=== PATIENT | male | born 1975 | race Caucasian/White ===

== ENCOUNTER 2016-05-18 11:52 | Emergency (ER) | payer OTHER ==
[2016-05-18] MEDS ORDERED: Ibuprofen 800 MG Tab PO ONE (11:58)
[2016-05-18] MEDS ORDERED: Diphtheria,Pertussis(Acell),Tetanus Vaccine 0.5 ML Syringe IM ONE (11:58)
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
--- NOTE | 2016-05-18 13:18 | CR ---
EXAMINATION: Left femur HISTORY: Trauma COMPARISON: None TECHNIQUE: 2 views FINDINGS: There is subcutaneous gas noted along the lateral aspect of the distal thigh overlying the femur. There is no fracture or acute osseous abnormality noted. No suprapatellar joint effusion. Daron ne mineralization is normal. IMPRESSION: 1. Subcutaneous air projecting over the lateral aspect of the distal thigh without a visualized acut e osseous abnormality.
[2016-05-18 14:57] VITALS: BP 123/83
== END 2016-05-18 14:25 | disposition home or self-care (01) ==
LOC: MW.ED 11:52
DX: S70.12XA Contusion of left thigh, initial encounter (principal); Z23 Encounter for immunization; I10 Essential (primary) hypertension; Z79.899 Other long term (current) drug therapy
CPT/HCPCS: 36415; 73552; 81001; 82550; 90471; 90715; 99283; A9270

== ENCOUNTER 2016-05-20 14:05 | Observation (INO) | payer OTHER ==
[2016-05-20] MEDS ORDERED: Acetaminophen/HYDROcodone 325-5 MG Tab PO PRN (14:14)
[2016-05-20] MEDS ORDERED: Ibuprofen 600 MG Tab PO PRN (14:14)
[2016-05-20] MEDS ORDERED: Ondansetron 4 MG Tab.DIS PO PRN (14:14)
[2016-05-20] MEDS ORDERED: Piperacillin/Tazobactam 3.375 GM in Sodium Chloride 0.9% 50 ML IV SCH (14:30)
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
[2016-05-20] MEDS: Ketorolac 30 MG/ML SDV IVPUSH SCH ×2 (17:26→21:10)
[2016-05-20] MEDS: Lactated Ringers 1,000 ML IV SCH (17:26)
[2016-05-20] MEDS: Piperacillin/Tazobactam 3.375 GM in Sodium Chloride 0.9% 50 ML IV SCH ×2 (17:45→23:19)
[2016-05-20 18:19] LABS: CHLORIDE,CL 104 mmol/L (98-110); SODIUM,NA 141 mmol/L (136-146)
[2016-05-20] MEDS ORDERED: Potassium Chloride 20 MEQ Tab.ER PO ONE (18:30)
[2016-05-21] MEDS: Ketorolac 30 MG/ML SDV IVPUSH SCH ×4 (02:10→21:34)
[2016-05-21] MEDS: Piperacillin/Tazobactam 3.375 GM in Sodium Chloride 0.9% 50 ML IV SCH ×4 (04:39→23:43)
[2016-05-21 05:12] LABS: CHLORIDE,CL 107 mmol/L (98-110); SODIUM,NA 141 mmol/L (136-146)
[2016-05-21] MEDS: Lactated Ringers 1,000 ML IV SCH ×2 (05:13→18:14)
[2016-05-21] MEDS ORDERED: Acetaminophen 500 MG Tab PO PRN (08:19)
--- NOTE | 2016-05-21 08:20 | PCM.SN ---
- Free Text/Narrative Note: pt resting comfortably in bed states leg pain improving denies fevers/chills overnight no specific concerns today is receiving 30mg Toradol IV q6h scheduled, no PRN pain/antipyretics needed overnight wvv, afeb - Tmax 99.6 exam L thigh reveals anterior wound to be clean with minimal serosanguinous drainage no surrounding erythema thigh tender with palpation ROM at knee deferred due to thigh pain at/ehl/gastroc 5/5, dp 2+, sensation intact distally WBC improved to 14.46 from 16.51 on admit postassium WNL 4.1 (3.3 yesterday, received 40 mEq IV yesterday) ESR 44 CRP 24.39 blood cultures x2 pending US from yesterday showed no fluid collection at injury site - no radiographic signs of abscess L thigh wound hypokalemia - resolved will remove NPO status for today regular diet for today NPO at midnight until re-evaluation of wound AM 3/24 tylenol PRN fevers - not to exceed 4,000mg in 24 hrs continue current IV abx activity as tolerated
[2016-05-21] MEDS ORDERED: Pantoprazole 40 MG Tab.CR PO SCH (12:30)
--- NOTE | 2016-05-21 13:23 | US ---
EXAM DATE: 05/20/16 PATIENT'S AGE: 41 Patient: SATISH GARZA Facility: [place], [place] Site . Site : 1975 Study: US Extremity [id number]/22/2017 5:03:38 PM Ordering Physician: Dottie Eddy Final Report: INDICATION: pain in left thigh and knee LEFT LOWER EXTREMITY VENOUS DUPLEX ULTRASOUND TECHNIQUE: Duplex sonography using grayscale imaging as well as color and spectral Doppler interrogation was performed over the left lower extremity with attention to the deep venous system. FINDINGS: The left common femoral, femoral, deep femoral, popliteal, and posterior tibial veins show normal compressibility, color Doppler flow, and augmentation response. IMPRESSION: No evidence of deep venous thrombosis in the left lower extremity. FLOWER GURROLA MD [employer] Dictated by: Breezy Gurrola MD @ 05/20/2016 17:08:21 (Electronic Signature) Report Signed by Proxy and Original Signed Document filed in the Medical Record. MTDD
--- NOTE | 2016-05-21 13:25 | US ---
EXAM DATE: 05/20/16 PATIENT'S AGE: 41 Patient: SATISH GARZA Facility: [place], [place] Site . Site : 1975 Study: US Extremity [id number]/22/2017 8:39:42 PM Ordering Physician: Dottie Eddy Final Report: Indication: Thigh trauma, edema Technique: Ultrasound extremity Comparison: None. Findings: The left thigh was scanned in the area of the patient`s known open wound. No evidence for fluid collections that would be consistent with hematoma or abscess. Diffuse edematous changes noted. Impression: No evidence of a walled-off fluid collection consistent with hematoma or abscess. Diffuse edema. Dictated by Jorge Ledezma MD @ 05/20/2016 9:16:00 PM Dictated by: Jorge Ledezma MD @ 05/20/2016 21:16:11 (Electronic Signature) Report Signed by Proxy and Original Signed Document filed in the Medical Record. [email or web address]
--- NOTE | 2016-05-21 18:14 | PCM.SURGPN ---
- General Info Date of Service: 05/21/16 Functional Status: Reports: pain controlled - Review of Systems General: Reports: No Symptoms. Denies: Fever, Chills Systems Review Comment:: Patient improving. Has been OOB and ambulating with tolerable pain. Having more lateral knee pain. - Patient Data Vitals - most recent: Last Vital Signs Temp 98.8 F 05/21/16 15:30 Pulse 83 05/21/16 15:30 Resp 16 05/21/16 15:30 BP 133/78 05/21/16 15:30 Pulse Ox 97 05/21/16 15:30 Weight - most recent: 118.1 kg I&O - last 24 hours: Intake & Output 05/21/16 05/21/16 05/21/16 06:59 14:59 22:59 Intake Total 2000 50 650 Output Total 650 1200 Balance 1350 50 -550 Lab Results last 24 hrs: Laboratory Results - last 24 hr 05/20/16 05/20/16 05/20/16 Range/Units 17:44 17:44 17:44 WBC (4.0-11.0) K/uL RBC (4.50-5.90) M/uL Hgb (13.0-17.0) g/dL Hct (38.0-50.0) % MCV (80.0-98.0) fL MCH (27.0-32.0) pg MCHC (31.0-37.0) g/dL RDW Std Deviation (28.0-62.0) fl RDW Coeff of Shaun (11.0-15.0) % Plt Count (150-400) K/uL MPV (7.40-12.00) fL Neut % (Auto) (48.0-80.0) % Lymph % (Auto) (16.0-40.0) % Arthur % (Auto) (0.0-15.0) % Eos % (Auto) (0.0-7.0) % Baso % (Auto) (0.0-1.5) % Neut # (Auto) (1.4-5.7) K/uL Lymph # (Auto) (0.6-2.4) K/uL Arthur # (Auto) (0.0-0.8) K/uL Eos # (Auto) (0.0-0.7) K/uL Baso # (Auto) (0.0-0.1) K/uL Nucleated RBC % /100WBC Nucleated RBCs # K/uL ESR 44 H (0-14) mm/hr Sodium 141 (136-146) mmol/L Potassium 3.3 L (3.5-5.1) mmol/L Chloride 104 (98-110) mmol/L Carbon Dioxide 26 (21-31) mmol/L BUN 19 (6.0-23.0) mg/dL Creatinine 1.1 (0.6-1.5) mg/dL Est Cr Clr Drug Dosing 94.13 mL/min Estimated GFR (MDRD) > 60.0 ml/min Glucose 130 H (60-110) mg/dL Calcium 8.7 L (8.8-10.8) mg/dL C-Reactive Protein 24.39 H (0.0-0.5) mg/dL 05/21/16 05/21/16 Range/Units 04:20 04:20 WBC 14.46 H (4.0-11.0) K/uL RBC 4.71 (4.50-5.90) M/uL Hgb 13.4 (13.0-17.0) g/dL Hct 40.7 (38.0-50.0) % MCV 86.4 (80.0-98.0) fL MCH 28.5 (27.0-32.0) pg MCHC 32.9 (31.0-37.0) g/dL RDW Std Deviation 42.5 (28.0-62.0) fl RDW Coeff of Shaun 13 (11.0-15.0) % Plt Count 224 (150-400) K/uL MPV 10.10 (7.40-12.00) fL Neut % (Auto) 75.4 (48.0-80.0) % Lymph % (Auto) 12.9 L (16.0-40.0) % Arthur % (Auto) 10.8 (0.0-15.0) % Eos % (Auto) 0.7 (0.0-7.0) % Baso % (Auto) 0.2 (0.0-1.5) % Neut # (Auto) 10.9 H (1.4-5.7) K/uL Lymph # (Auto) 1.9 (0.6-2.4) K/uL Arthur # (Auto) 1.6 H (0.0-0.8) K/uL Eos # (Auto) 0.1 (0.0-0.7) K/uL Baso # (Auto) 0.0 (0.0-0.1) K/uL Nucleated RBC % 0.0 /100WBC Nucleated RBCs # 0 K/uL ESR (0-14) mm/hr Sodium 141 (136-146) mmol/L Potassium 4.1 (3.5-5.1) mmol/L Chloride 107 (98-110) mmol/L Carbon Dioxide 26 (21-31) mmol/L BUN 18 (6.0-23.0) mg/dL Creatinine 1.0 (0.6-1.5) mg/dL Est Cr Clr Drug Dosing 103.54 mL/min Estimated GFR (MDRD) > 60.0 ml/min Glucose 107 (60-110) mg/dL Calcium 8.2 L (8.8-10.8) mg/dL C-Reactive Protein (0.0-0.5) mg/dL Marcel Results last 24 hrs: Microbiology 05/20/16 17:49 Aerobic Blood Culture - Preliminary Blood - Venous - Lab Draw NO GROWTH AFTER 1 DAY Anaerobic Blood Culture - Preliminary NO GROWTH AFTER 1 DAY 05/20/16 17:44 Aerobic Blood Culture - Preliminary Blood - Venous NO GROWTH AFTER 1 DAY Anaerobic Blood Culture - Preliminary NO GROWTH AFTER 1 DAY Med Orders - Current: Current Medications Acetaminophen (Tylenol Extra Strength) 1,000 mg PO Q6H PRN PRN Reason: Fever Hydrocodone Bitart/Acetaminophen ([place] 325-5 Mg) 2 tab PO Q6H PRN PRN Reason: Pain (moderate 4-6) Last Admin: 05/21/16 10:36 Dose: 1 tab Lactated Ringer's (Ringers, Lactated) 1,000 mls @ 100 mls/hr IV ASDIRECTED [facility] Last Admin: 05/21/16 05:13 Dose: 100 mls/hr Piperacillin Sod/Tazobactam (Sod 3.375 gm/ Sodium Chloride) 50 mls @ 100 mls/ hr IV Q6H [facility] Last Admin: 05/21/16 17:15 Dose: 100 mls/hr Vancomycin HCl 1,750 mg/ (Sodium Chloride) 500 mls @ 333.333 mls/hr IV Q12H [facility] Last Admin: 05/21/16 18:00 Dose: 333.333 mls/hr Ketorolac Tromethamine (Toradol) 30 mg IVPUSH Q6H [facility] Last Admin: 05/21/16 14:27 Dose: 30 mg Ondansetron HCl (Zofran Odt) 4 mg PO Q6H PRN PRN Reason: nausea, able to take PO Esomeprazole Magnesium (Nexium) 40 Mg 1 each PO DAILY [facility] Vancomycin HCl (Pharmacy To Dose - Vancomycin) 1 dose .XX ASDIRECTED [facility] Discontinued Medications Piperacillin Sod/Tazobactam (Sod 3.375 gm/ Sodium Chloride) 50 mls @ 100 mls/ hr IV Q6H [facility] Last Admin: 05/20/16 17:25 Dose: 100 mls/hr Vancomycin HCl 1,750 mg/ (Sodium Chloride) 500 mls @ 333.333 mls/hr IV Q12H [facility] Last Admin: 05/20/16 18:37 Dose: Not Given Ibuprofen (Motrin) 600 mg PO Q6H PRN PRN Reason: Fever Pantoprazole Sodium (Protonix) 40 mg PO DAILY [facility] Last Admin: 05/21/16 12:27 Dose: 40 mg Potassium Chloride (Klor-Con M20) 40 meq PO ONETIME ONE Stop: 05/20/16 18:31 Last Admin: 05/20/16 18:36 Dose: 40 meq - Exam Wound/Incisions: other (L anterior laceration with serosanguinous drainage. No surrounding erythema or induration. TTP along lateral thigh and knee. Pain with any knee motion. No calf TTP. AT/EHL/gastroc 5/5. Sensation intact. DP 2+.) General: alert, oriented Lungs: Normal respiratory effort Cardiovascular: Regular Rate Psy/Mental Status: alert, normal affect, normal mood - Problem List & Annotations (1) Complicated open wound of thigh SNOMED Code(s): 141588157 Code(s): S71.109A - UNSPECIFIED OPEN WOUND, UNSPECIFIED THIGH, INITIAL ENCOUNTER Status: Acute Current Visit: Yes Qualifiers: Encounter type: subsequent encounter Laterality: left Qualified Code(s): S71.102D - Unspecified open wound, left thigh, subsequent encounter - Problem List Review Problem List Initiated/Reviewed/Updated: Yes - My Orders Last 24 Hours: Active Orders 24 hr Category Date Time Status Nothing per Oral After Midnight Diet [DIET] Diet 05/21/16 Dinner Active Regular Diet [DIET] Diet 05/21/16 Breakfast Active CULTURE BLOOD [BC] Stat Lab 05/20/16 17:44 Results CULTURE BLOOD [BC] Stat Lab 05/20/16 17:49 Results VANCOMYCIN TROUGH [CHEM] Routine Lab 05/22/16 05:30 Ordered Acetaminophen [Tylenol Extra Strength] Med 05/21/16 08:19 Active 1,000 mg PO Q6H PRN Patient's Own Medication [Ptom] Med 05/21/16 17:45 Active 1 each PO DAILY Piperacillin/Tazobactam [Piperacil-Tazobact] 3.375 gm Med 05/20/16 17:30 Active Sodium Chloride 0.9% [Normal Saline] 50 ml IV Q6H Vancomycin 1,750 mg Med 05/20/16 18:00 Active Sodium Chloride 0.9% [Normal Saline] 500 ml IV Q12H Medication Orders Acetaminophen (Tylenol Extra Strength) 1,000 mg PO Q6H PRN PRN Reason: Fever Hydrocodone Bitart/Acetaminophen ([place] 325-5 Mg) 2 tab PO Q6H PRN PRN Reason: Pain (moderate 4-6) Last Admin: 05/21/16 10:36 Dose: 1 tab Lactated Ringer's (Ringers, Lactated) 1,000 mls @ 100 mls/hr IV ASDIRECTED [facility] Last Admin: 05/21/16 05:13 Dose: 100 mls/hr Infusion: 05/21/16 03:26 Dose: 100 mls/hr Admin: 05/20/16 17:26 Dose: 100 mls/hr Piperacillin Sod/Tazobactam (Sod 3.375 gm/ Sodium Chloride) 50 mls @ 100 mls/ hr IV Q6H [facility] Last Admin: 05/21/16 17:15 Dose: 100 mls/hr Infusion: 05/21/16 11:08 Dose: 100 mls/hr Admin: 05/21/16 10:38 Dose: 100 mls/hr Infusion: 05/21/16 05:09 Dose: 100 mls/hr Admin: 05/21/16 04:39 Dose: 100 mls/hr Infusion: 05/20/16 23:49 Dose: 100 mls/hr Admin: 05/20/16 23:19 Dose: 100 mls/hr Infusion: 05/20/16 18:15 Dose: 100 mls/hr Admin: 05/20/16 17:45 Dose: 100 mls/hr Vancomycin HCl 1,750 mg/ (Sodium Chloride) 500 mls @ 333.333 mls/hr IV Q12H [facility] Last Admin: 05/21/16 18:00 Dose: 333.333 mls/hr Infusion: 05/21/16 07:47 Dose: 333.333 mls/hr Admin: 05/21/16 06:16 Dose: 333.333 mls/hr Infusion: 05/20/16 19:48 Dose: 333.333 mls/hr Admin: 05/20/16 18:17 Dose: 333.333 mls/hr Ketorolac Tromethamine (Toradol) 30 mg IVPUSH Q6H [facility] Last Admin: 05/21/16 14:27 Dose: 30 mg Admin: 05/21/16 08:32 Dose: 30 mg Admin: 05/21/16 02:10 Dose: 30 mg Admin: 05/20/16 21:10 Dose: Admin: 05/20/16 17:26 Dose: 30 mg Ondansetron HCl (Zofran Odt) 4 mg PO Q6H PRN PRN Reason: nausea, able to take PO Esomeprazole Magnesium (Nexium) 40 Mg 1 each PO DAILY [facility] Vancomycin HCl (Pharmacy To Dose - Vancomycin) 1 dose .XX ASDIRECTED [facility] - Plan Plan (Free Text/Narrative):: 1. OOB as tolerated 2. dressing changes prn 3. continue Vanco/Zosyn 4. MRI tomorrow to evaluate thigh 5. WBC decreased--new CBC in am 6. hypokalemia resolved
[2016-05-21] MEDS ORDERED: Sodium Chloride 0.9% 2.5 ML Syringe FLUSH PRN (18:19)
[2016-05-21] MEDS ORDERED: Sodium Chloride 0.9% 10 ML Syringe FLUSH PRN (18:19)
[2016-05-22] MEDS: Ketorolac 30 MG/ML SDV IVPUSH SCH ×3 (02:59→14:52)
[2016-05-22] MEDS: Piperacillin/Tazobactam 3.375 GM in Sodium Chloride 0.9% 50 ML IV SCH ×2 (04:36→11:02)
[2016-05-22 08:47] VITALS: BP 134/89
[2016-05-22] MEDS ORDERED: Levofloxacin 250 MG Tab PO SCH (13:15)
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
--- NOTE | 2016-05-22 13:28 | PCM.SN ---
- Free Text/Narrative Note: Patient seen and examined. Agree with MD Boom note. Patient feeling better today. Pain well controlled. No fevers. Has been OOB. Exam shows wound to be clean with serosang drainage. No erythema or induration. Still with TTP along lateral thigh--progressing to lateral knee and lateral low leg now, presumed due to gravity. Still with pain in thigh with ROM of knee. Moderate joint effusion at knee, but no TTP except along lateral aspect. No calf TTP. AT/EHL/gastroc 07/03. Sensation intact. DP 2+. ESR, CRP, WBC decreased. MRI shows no fluid collection. Evidence of injury to vastus lateralis and intermedius. Evidence of soft tissue swelling. Plan to discharge home today. Will remain on outpatient IV abx (Cubicin) and po Levaquin. Encourage knee ROM. Can wear immobilizer when up. Change dressing prn. If increased symptoms over weekend, patient advised to return to ER. Will f /u with me on Wednesday.
--- NOTE | 2016-05-22 14:05 | MR ---
EXAM DATE: 05/20/16 PATIENT'S AGE: 41 Patient: SATISH GARZA Facility: [place], [place] : 1975 Study: MRI Extremity Left [id number]/23/2017 9:34:36 PM Ordering Physician: Dottie Eddy Final Report: HISTORY: Left thigh injury. Technique: Axial, sagittal and coronal T1, proton density and T2 fat-sat images were obtained of the left thigh without contrast administration. Findings: There is a soft tissue wound along the anterolateral aspect of the distal left thigh as seen on axial T2 fat-sat image #20. There is infiltration of the subcutaneous tissues of the anterior and lateral aspect of the left thigh. This could relate to subcutaneous cellulitis, edema or hemorrhage. There is some thin fluid along the superficial fascia of the vastus lateralis muscle at the mid thigh level on axial T2 fast image #49 for example. Interstitial muscle edema-like signal abnormality involves the vastus lateralis, intermedius and a portion of the vastus medialis muscles. This could be posttraumatic or inflammatory. There is a defect involving the musculotendinous unit of the vastus lateralis as seen on axial T2 fat-sat image #18. Intramuscular defect involving the vastus intermedius muscle is noted on axial T2 fat-sat images #23 through 55 of series 901 compatible with muscle belly injury. On the coronal PD fat-sat images, note is made of a few locules of soft tissue gas within the soft tissues of the anterior lateral distal thigh. There is no left femoral fracture or osteomyelitis. . A moderate left knee joint effusion is present. In the setting of a penetrating injury, septic arthritis should be excluded. A small popliteal cyst is present. No significant left-sided hip joint effusion. Impression: 1. Soft tissue wound involving the anterior lateral aspect of the distal left thigh. 2. Subcutaneous signal abnormality involving the left thigh could relate to cellulitis, edema or hemorrhage from trauma. 3. Muscle edema-like signal involving the vastus lateralis, intermedius and less so vastus medialis muscles could be inflammatory related to myositis or relate to direct muscle trauma or strain. There is a small defect involving the musculotendinous unit of the vastus lateralis. Intramuscular parenchymal injury involving the vastus intermedius muscle with a small amount of fluid tracking amongst muscle fibers. 4. A few locules of soft tissue gas are present within the soft tissues of the anterior lateral distal thigh. 5. Moderate left knee joint effusion. If not previously performed, arthrocentesis should be considered to exclude septic arthritis. 6. No osteomyelitis or femoral fracture. Dictated by Jarvis Weller MD @ May 22 2016 8:16AM (Electronic Signature) Report Signed by Proxy and Original Signed Document filed in the Medical Record. LISA
[2016-05-22] MEDS ORDERED: DAPTOmycin 500 MG Vial IVPUSH SCH (16:00)
[2016-05-22] MEDS ORDERED: DAPTOmycin 500 MG in Sodium Chloride 0.9% 10 ML IV SCH (16:00)
== END 2016-05-22 15:45 | disposition home or self-care (01) ==
LOC: MW.MS 14:05
PROVIDERS: ADMIT Orthopaedic Surgery; ATTEND Orthopaedic Surgery
DX: S71.102D Unspecified open wound, left thigh, subsequent encounter (principal); I10 Essential (primary) hypertension; F41.9 Anxiety disorder, unspecified; Z79.899 Other long term (current) drug therapy; Z98.890 Other specified postprocedural states
CPT/HCPCS: 36415; 73718; 76881; 80048; 80202; 85025; 85652; 86140; 87040; 96361; 96365; 96366; 96367; 96375; 96376; A9270; G0378; G0379; J0878; J1885; J2543; J3370; J7040; J7050; J7120

== ENCOUNTER → 2016-06-25 | Outpatient (CLI) | payer OTHER ==
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
== END ==
LOC: MW.MRI 12:17
PROVIDERS: ATTEND Orthopaedic Surgery
DX: T70.4XXA Effects of high-pressure fluids, initial encounter (principal)
CPT/HCPCS: 73721-26-LT; 73721-LT